=== PATIENT | male | born 1995 | race Caucasian/White ===

== ENCOUNTER 2021-02-19 21:49 | Inpatient (IN) | payer OTHER ==
[~2021-02-19] VITALS: Ht 165.1 cm; Wt 68.0 kg
[2021-02-19 22:24] VITALS: BP 115/62
[2021-02-19 22:44] LABS: BASOPHILS % (AUTO) 0.8 % (0.0-2.0); EOSINOPHILS % (AUTO) 0.7 % (0.0-4.0); HEMATOCRIT 46.3 % (36-48); HEMOGLOBIN 16.1 g/dL (12.0-16.0); LYMPHOCYTES # (AUTO) 2.8 K/uL (2.5-16.5); LYMPHOCYTES % (AUTO) 50.4 % (20.5-51.1); MEAN CORPUSCULAR HEMOGLOBIN 35 pg (27-31); MEAN CORPUSCULAR HGB CONC 35 g/dL (33-37); MONOCYTES # (AUTO) 0.4 K/uL (0.8-1.0); MONOCYTES % (AUTO) 6.7 % (1.7-9.3); NEUTROPHILS # (AUTO) 2.3 K/uL (1.8-7.7); NEUTROPHILS % (AUTO) 41.4 % (42.2-75.2); PLATELET COUNT (AUTO) 304 K/uL (140-450); RED BLOOD CELL COUNT(AUTO) 4.59 MIL/uL (4.20-5.40); RED CELL DISTRIBUTION WIDTH 12.8 % (11.6-13.7); WHITE BLOOD COUNT (AUTO) 5.5 K/uL (4.8-10.8)
[2021-02-19 23:01] LABS: ALBUMIN 3.5 g/dL (3.4-5.0); ANION GAP 8.1 (8-16); CARBON DIOXIDE 30.6 mmol/L (21-32); CREATININE 1.1 mg/dL (0.6-1.3); POTASSIUM 3.7 mmol/L (3.5-5.1); TOTAL BILIRUBIN 0.2 mg/dL (0.0-1.0)
[2021-02-20] MEDS ORDERED: DEXT 5% /NACL 0.9% 1,000 ML IV ONE (02:00)
[2021-02-20 02:45] VITALS: BP 113/65
[2021-02-20] MEDS ORDERED: DOCUSATE SODIUM 100 MG GELCAP PO PRN (08:05)
[2021-02-20] MEDS ORDERED: ZOLPIDEM 5 MG TAB PO PRN (08:05)
[2021-02-20] MEDS ORDERED: ACETAMINOPHEN 325 MG TAB PO PRN (08:05)
[2021-02-20] MEDS ORDERED: HYDROcodone/APAP 7.5/325 MG 1 TAB PO PRN (08:05)
[2021-02-20] MEDS ORDERED: POTASSIUM CHLORIDE 10 MEQ TABER PO PRN (08:05)
[2021-02-20] MEDS ORDERED: guaiFENesin DM 200/20 MG-10 ML 10 ML UDC PO PRN (08:05)
[2021-02-20] MEDS ORDERED: ONDANSETRON 4 MG/2 ML VIAL IM/IVP PRN (08:05)
[2021-02-20 08:43] LABS: PROTHROMBIN TIME 10.1 secs (10.8-13.4)
[2021-02-20 08:57] LABS: PHOSPHORUS 3.8 mg/dL (2.5-4.9)
[2021-02-20 08:58] LABS: FREE T4 (FREE THYROXINE) 0.78 ng/dL (0.76-1.46); THYROID STIMULATING HORMONE 4.38 uIU/mL (0.34-3.74)
[2021-02-20 09:21] LABS: CHOL/HDL RATIO 5.3 (1-4.5)
[2021-02-20] MEDS: PANTOPRAZOLE 40 MG TABEC PO SCH (09:45)
[2021-02-20 11:40] LABS: APPEARANCE,URINE CLEAR (CLEAR); BILIRUBIN,URINE NEGATIVE (NEGATIVE); BLOOD, URINE NEGATIVE (NEGATIVE); COLOR,URINE YELLOW (YELLOW); LEUKOCYTE ESTERASE ,URINE NEGATIVE (NEGATIVE); NITRITE, URINE NEGATIVE (NEGATIVE); PH,URINE 6.5 (5.0-9.0); UGLUCOSE NEGATIVE (NEGATIVE)
[2021-02-20 12:00] VITALS: BP 104/56
[2021-02-20] MEDS: DEXT 5% /NACL 0.9% 1,000 ML IV SCH (12:00)
[2021-02-20 12:01] LABS: BARBITURATE, URINE NEGATIVE ng/ml (NEG <=200); BENZODIAZEPINE, URINE NEGATIVE ng/mL (NEG <=200); CANNABINOID, URINE NEGATIVE ng/mL (NEG <=50); COCAINE, URINE NEGATIVE ng/mL (NEG <=300); OPIATE, URINE NEGATIVE ng/mL (NEG <=2000); PHENCYCLIDINE SCREEN,URINE NEGATIVE ng/mL (NEG <=25)
[2021-02-20 20:00] VITALS: BP 99/59
[2021-02-21] MEDS: DEXT 5% /NACL 0.9% 1,000 ML IV SCH ×2 (00:50→08:00)
[2021-02-21 04:00] VITALS: BP 105/56
[2021-02-21 06:53] LABS: ANION GAP 10.9 (8-16); CARBON DIOXIDE 26.3 mmol/L (21-32); CREATININE 0.8 mg/dL (0.6-1.3); POTASSIUM 3.2 mmol/L (3.5-5.1)
[2021-02-21 07:02] LABS: BASOPHILS % (AUTO) 0.6 % (0.0-2.0); EOSINOPHILS % (AUTO) 0.7 % (0.0-4.0); HEMATOCRIT 43.1 % (36-52); LYMPHOCYTES # (AUTO) 1.7 K/uL (2.0-11.5); LYMPHOCYTES % (AUTO) 38.9 % (20.5-51.1); MEAN CORPUSCULAR HEMOGLOBIN 35 pg (27-31); MEAN CORPUSCULAR HGB CONC 35 g/dL (33-37); MEAN CORPUSCULAR VOLUME 99.8 fL (80-94); MONOCYTES # (AUTO) 0.3 K/uL (0.8-1.0); MONOCYTES % (AUTO) 6.5 % (1.7-9.3); NEUTROPHILS # (AUTO) 2.3 K/uL (1.8-7.7); NEUTROPHILS % (AUTO) 53.3 % (42.2-75.2); PLATELET COUNT (AUTO) 256 K/uL (140-450); RED BLOOD CELL COUNT(AUTO) 4.31 MIL/uL (4.20-6.10); RED CELL DISTRIBUTION WIDTH 12.8 % (11.6-13.7); WHITE BLOOD COUNT (AUTO) 4.3 K/uL (4.8-10.8)
[2021-02-21 08:07] LABS: T4 (THYROXINE) 6.3 ug/dL (4.5-12.0)
[2021-02-21] MEDS: PANTOPRAZOLE 40 MG TABEC PO SCH (08:17)
[2021-02-21] MEDS ORDERED: POTA10TA70 PO (08:58)
[2021-02-21 09:54] VITALS: BP 105/56
== END 2021-02-21 10:25 | disposition home or self-care (01) | DRG 395 ==
LOC: MED 21:49 → EDSEX 21:49 → MTU 02-20 02:03
PROVIDERS: ADMIT Family Medicine; ATTEND Family Medicine
DX: K40.90 Unilateral inguinal hernia, without obstruction or gangrene, not specified as recurrent (principal); R00.1 Bradycardia, unspecified; I45.6 Pre-excitation syndrome; E03.8 Other specified hypothyroidism; N43.3 Hydrocele, unspecified; E78.2 Mixed hyperlipidemia; Q90.9 Down syndrome, unspecified
CPT/HCPCS: 36415; 71045; 76870; 80048; 80053; 80305; 81003; 82150; 83036; 83605; 83690; 83735; 83880; 84100; 84436; 84439; 84443; 84479; 84484; 85025; 85610; 85730; 87081; 99285; Q0092